=== PATIENT | male | born 1985 | race Caucasian/White ===

== ENCOUNTER 2016-08-20 12:53 | Emergency (ER) | payer SELFPAY ==
[2016-08-20 13:09] VITALS: BP 121/70
--- NOTE | 2016-08-20 13:22 | UC ---
Upper Extremity HPI - HPI Summary HPI Summary: 30 year old presents complaining of left hand and wrist pain which began suddenly after falling over of his snow mobile last night. Patient was standing in a stationary position, foot got caught while trying to exit his snow mobile, patient fell onto an outstretched closed fist left hand, heard and felt a pop. Hand is swollen and painful to touch and movement, patient has full ROM in the hand, denies numbness or tingling. - History of Current Complaint Chief Complaint: UCUpperExtremity Stated Complaint: LEFT HAND INJURY Time Seen by Provider: 08/20/16 13:06 Hx Obtained From: Patient ?: No Onset/Duration: Sudden Onset Severity Initially: Moderate Severity Currently: Moderate Pain Intensity: 5 Pain Scale Used: 0-10 Numeric Location Of Pain: Is Discrete @ - Left wrist, third fourth and fifth metacarpals Character: Throbbing Aggravating Factor(s): Movement, Flexion - of the left wrist, Extension - of the left wrist Alleviating Factor(s): Other: - Has not tried any alleviating interventions Associated Signs And Symptoms: Positive: Swelling, Bruising - Risk Factors Non-Orthopedic Risk Factor: Negative Septic Arthritis Risk Factor: Negative Compartment Syndrome Risk Factors: Pain - Allergies/Home Medications Allergies/Adverse Reactions: Allergies Allergy/AdvReac Type Severity Reaction Status Date / Time allergies Allergy Congestion Uncoded 08/20/16 13:09 PMH/Surg Hx/FS Hx/Imm Hx Previously Healthy: Yes Endocrine History Of: Denies: Diabetes, Thyroid Disease, Hyperthyroidism, Hypothyroidism, Dyslipidemia Respiratory History Of: Denies: COPD, Asthma, Bronchitis, Pneumonia, Pulmonary Embolism GI/ History Of: Denies: Gastroesophageal Reflux, Ulcer, Gastrointestinal Bleed, Gall Bladder Disease, Kidney Stones, Diverticulitis, Renal Disease, Urosepsis Neurological History Of: Denies: Seizures, Migraine Psychological History Of: Denies: Anxiety, Depression, Bipolar Disorder - Surgical History Surgical History: None - Family History Known Family History: Positive: None - Social History 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 Alcohol Use: Occasionally Substance Use Type: None Smoking Status (MU): Never Smoked Tobacco Have You Smoked in the Last Year: No Review of Systems Constitutional: Negative Skin: Bruising - Left hand Eyes: Negative ENT: Negative Respiratory: Negative Cardiovascular: Negative Gastrointestinal: Negative Genitourinary: Negative Motor: Other - Pain with left hand/wrist ROM Neurovascular: Negative Musculoskeletal: Edema - Left hand/wrist Neurological: Negative Psychological: Negative All Other Systems Reviewed And Are Negative: Yes Physical Exam Triage Information Reviewed: Yes Appearance: Well-Appearing, No Pain Distress Vital Signs: Initial Vital Signs Temp 98.7 F 08/20/16 13:03 Pulse 75 08/20/16 13:03 Resp 20 08/20/16 13:03 BP 121/70 08/20/16 13:03 Vital Signs Reviewed: Yes Eye Exam: Normal Eyes: Positive: Conjunctiva Clear ENT Exam: Normal ENT: Positive: Normal ENT inspection, Hearing grossly normal, Pharynx normal, TMs normal Dental Exam: Normal Neck exam: Normal Neck: Positive: Supple, Nontender, No Lymphadenopathy Respiratory: Positive: Chest non-tender, Lungs clear, Normal breath sounds, No respiratory distress, No accessory muscle use Cardiovascular: Positive: RRR, No Murmur, Pulses Normal, Brisk Capillary Refill - Equal bilaterally in upper extremities Abdomen Description: Positive: Nontender, No Organomegaly, Soft Bowel Sounds: Positive: Present Musculoskeletal: Positive: Strength Intact, ROM Intact, Edema @ - Left hand Neurological Exam: Normal Neurological: Positive: Alert, Muscle Tone Normal Psychological Exam: Normal Skin: Positive: Other - Swelling and bruising left hand Upper Extremity Course/Dx - Differential Dx/Diagnosis Provider Diagnoses: L wrist sprain Discharge - Discharge Plan Condition: Stable Disposition: HOME Prescriptions: Naproxen Sodium 500 mg PO BID #20 tab Patient Education Materials: Wrist Injury (ED) Referrals: No Primary Care Phys,NOPCP [Primary Care Provider] - 09/02/16 (In the next 10- 14 days ) Additional Instructions: As discussed, seek immediate medical attention for any signs of compartment syndrome, follow up with orthopedist in the next 10-14 days. Keep splint on except for seated bathing. [facility] office number is [phone]
--- NOTE | 2016-08-20 14:15 | RAD ---
INDICATION: Pain and swelling across the metacarpals following traumatic injury. COMPARISON: None. TECHNIQUE: AP, lateral, and oblique views LEFT hand. REPORT: Negative for fracture or malalignment. Small 5 mm accessory ossicle or sequela of previous traumatic injury approximating the tip of the ulnar styloid. Mild soft tissue swelling over the dorsum of the hand at the level of the metacarpals. IMPRESSION: Soft tissue swelling. Negative for fracture.
== END 2016-08-20 14:45 | disposition home or self-care (01) ==
LOC: UCCORT 12:53
DX: S63.502A Unspecified sprain of left wrist, initial encounter (principal); W17.89XA Other fall from one level to another, initial encounter; Y92.9 Unspecified place or not applicable
CPT/HCPCS: 99203; G0463